=== PATIENT | male | born 1955 | race Caucasian/White ===

== ENCOUNTER 2018-02-13 07:00 | Day surgery (SDC) | payer OTHER ==
[2018-02-12 12:22] LABS: Absolute Lymphocytes (CBC) 1.6 K/uL (0.7-4.9); Absolute Monocytes 0.6 K/uL (0.1-1.3); Absolute Neutrophil 8.6 K/uL (1.8-8.0); Basophils % 1.5 % (0-1.3); Hematocrit 47.8 % (39.6-49.0); Lymphocytes % 14.1 % (15.3-44.8); MCH 31.3 pg (27.0-35.0); MPV 9.4 fL (7.6-11.3); Monocytes % 5.1 % (3.3-12.3); RBC Red Blood Cell Count 4.98 M/uL (4.33-5.43)
[2018-02-12 12:26] LABS: Protime INR 1.92
[2018-02-12 12:41] LABS: BUN Blood Urea Nitrogen 13 mg/dL (6-20); Bicarbonate 24 mEq/L (21-31); Glucose Level 144 mg/dL (65-120); Potassium 4.2 mEq/L (3.6-5.0); Sodium Level 136 mEq/L (135-145)
--- NOTE | 2018-02-12 13:04 | RAD REPORT ---
EXAM DESCRIPTION: RAD - Chest Single View - 02/12/2018 12:21 pm CLINICAL HISTORY: Preop chest, pending cardioversion COMPARISON: October 14, 2017 TECHNIQUE: AP portable chest image was obtained 1210 hours . FINDINGS: No failure, infiltrate or mass. Lung markings are similar to comparison imaging. Heart siz e is normal, decreased from prior imaging. No vascular engorgement. Trachea is midline. No measurable pleural effusion and no pneumothorax. No gross bony abnormality seen. No acute aortic findings suspe cted. IMPRESSION: No acute cardiopulmonary process. No suspicious change from comparison.
--- NOTE | 2018-02-12 15:00 | EKG ---
Test Date: 2018-02-12 Test Time: 12:27:03 Impress Associate: KIRIT MEASUREMENT RESULTS: Intervals: Rate: 57 [place]: QRSD: 98 QT: 396 QTc: 385 [place]: P: [place]: QRS: 24 T: 46 INTERPRETIVE STATEMENTS: Atrial fibrillation with slow ventricular response Low voltage QRS Abnormal ECG Compared to ECG 09/24/2017 09:02:51 Ventricular premature complex(es) no longer present T-wave abnormality no longer present Electronically Signed On 02-12-18 14:58:57 CDT by Rome Jean
[2018-02-13] MEDS ORDERED: NA CHLORIDE 0.9% 500 ML ONE (07:17)
[2018-02-13] MEDS ORDERED: FENTANYL CITR 100 MCG/2 ML ONE (07:43)
[2018-02-13] MEDS ORDERED: MIDAZOLAM HCL 5 MG/5 ML INJ ONE (07:43)
[2018-02-13 10:03] VITALS: BP 111/64; TEMP 97.2; O2SAT 97
--- NOTE | 2018-02-13 10:25 | EKG ---
Test Date: 2018-02-13 Test Time: 08:11:28 Civil Division Commander Deputy Sheriff: SHERIE MEASUREMENT RESULTS: Intervals: Rate: 71 [place]: 200 QRSD: 90 QT: 404 QTc: 439 [place]: P: 65 MN: 200 QRS: 16 T: 63 INTERPRETIVE STATEMENTS: Normal sinus rhythm Normal ECG Compared to ECG 02/12/2018 12:27:03 Atrial fibrillation no longer present Electronically Signed On 02-13-18 10:24:38 CDT by German Vazqeuz
--- NOTE | 2018-02-13 11:49 | OP ---
Surgeon: German Vazquez MD Identification: A 62-year-old man. Primary Care Physician: Dr. Sibley. Procedure: Direct current cardioversion. Indication: Atrial fibrillation. Procedure In Detail: The patient had improvement in his ejection fraction and stopped using alcohol, so we thought cardioversion would be a reasonable thing to attempt. He had been anticoagulated for close to a year for his AFib. He was brought to the [facility] in a fasting state. He had karen en his last Xarelto dose 12 hours before. He was fasting. He was sedated with 10 mg of Versed. It was titrated up to an adequate level of sedation. He was shocked with 1 shock 200 joules synchronize d to the QRS complex via anterior-posterior paddles. This resulted in sinus rhythm and successful ca rdioversion. There were no complications and he will be sent home today with no change in medicines. TALIB/LISA Voice ID: [id number] Report ID: [id number]
== END 2018-02-13 09:45 | disposition home health service (06) ==
LOC: CCL 07:00
PROVIDERS: ATTEND Internal Medicine
PROC: 5A2204Z Restoration of Cardiac Rhythm, Single (ICD-10-PCS; principal; 2018-02-13)
DX: I48.1 Persistent atrial fibrillation (principal); I42.6 Alcoholic cardiomyopathy; I11.0 Hypertensive heart disease with heart failure; I50.22 Chronic systolic (congestive) heart failure; Z79.01 Long term (current) use of anticoagulants
CPT/HCPCS: 36415; 71045; 80048; 85025; 85610; 85730; 92960; 93005; J2250; J3010

== ENCOUNTER 2024-07-03 12:15 | Emergency (ER) | payer OTHER ==
--- OUTSIDE RECORDS SUMMARY | 2024-07-03 12:18 | XMS REPORT | Clinical Summary ---
Author Name Unknown Organization [facility] Address [address] [place] [address] Care Team Providers Care Appeals Examiner Name Role Phone Jj Montero MD Primary Care Provider [phone] Dev Araiza MD Unavailable [phone] Rome Jean MD Unavailable [phone] Allergies No known active allergies Medications Medication Sig Dispensed Refills Start Date End Date Status metoprolol succinate (TOPROL XL) 50 mg 24 hr tablet TWICE DAILY 09/06/2017 Active sacubitriL-valsartan (Entresto) 24 mg-26 mg tab per tablet Take 1 tablet by mouth. 02/23/2021 Active tamsulosin (FLOMAX) 0.4 mg 24 hr capsule Take 1 capsule (0.4 mg) by mouth. 01/18/2022 Active multivit with minerals/lutein (MULTIVITAMIN 50 PLUS ORAL) Daily, 0 Refill(s) 09/26/2016 Active zinc gluconate 50 mg tablet Take 1 tablet (50 mg) by mouth daily. Active acetaminophen (TYLENOL) 500 mg tablet Take 1 tablet (500 mg) by mouth every 6 (six) hours as needed for mild pain. Active amoxicillin (AMOXIL) 500 mg capsule Take 1 capsule (500 mg) by mouth 3 (three) times a day. 05/01/2022 Active Xarelto 20 mg tablet Take 1 tablet (20 mg) by mouth daily. 04/10/2022 Active Active Problems Problem Noted Date Diagnosed Date [facility] current use of anticoagulant 2 Peripheral arterial occlusive disease 02/23/2022 History of alcohol abuse 02/23/2022 Malignant neoplasm of urinary bladder 02/22/2022 Cancer Staging:Clinical:Stage 0a(cTa, cN0, cM0) - Signed by Susanna Mohan PA on 08/04/2022 Overview: 01/18/22 Per [facility] Juliocesar Vieira is a 66 year old male who presents with 2 episodes or gross hematuria starting about 2 months ago lasting about 3 days each. Patient reports having irritative voiding symptoms including: frequency, dribbbling and hesitancy. He denies any flank, back or bone pain. Patient admits recent instrumentation and/or trauma including a rope being pulled between his legs while walking dog. He suffered brushing and abrasions to his buttock. Pt has personal history of bladder cancer diagnosed 40 years ago. Malignancy removed at [facility] in [place]. After malignancy removal he followed up for about 4 years with annual cystoscopies. Patient has been a smoker. Pt is an occasional drinker and has a hxt of alcoholism. 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 Denies previous treatments for enlarged prostate. Fatty liver 02/22/2022 Family history of prostate cancer 02/22/2022 Chronic atrial fibrillation 08/17/2017 Encounters Date Type Department Care Team Description 08/30/[address] [address] Reji Enciso RN 08/13/[address] [address] Reji Enciso RN 08/08/[address] [address] Reji Enciso RN 08/07/[address] [address] Roxana Machuca RN 08/06/[address] [address] Roxana Machuca, MICHAEL 07/11/2023 11:30 AM CDT Clinical Support MD Guido Yoder [address] [place] [address] Susanna Mohan PA Davis, Macaela T, RN Malignant tumor of urinary bladder (Primary Dx) 07/11/2023 Travel 07/10/2023 Telephone MD Guido Yoder [address] [place] [address] Roxana Machuca, RN after 07/04/2023 Surgical History Surgery Date Site/Laterality Comments CERVICAL FUSION 09/17/2016 - 09/16/2017 one in 2011 APPENDECTOMY 12 years old COLONOSCOPY 12/16/2021 - 01/14/2022 TRANSURETHRAL RESECTION OF BLADDER TUMOR 1999 ID CYSTOURETHROSCOPY W/DEST &/RMVL MED BLADDER MISSY 03/08/2022 N/A Procedure: CYSTOURETHROSCOPY WITH FULGURATION AND/OR TREATMENT OF MEDIUM LESION(S) (2.0 TO 5.0 CM; Surgeon: Jj Montero MD; Location: MAIN OR; Service: UROLOGY ID BLADDER INSTILLATION ANTICARCINOGENIC AGENT 03/08/2022 Genitalia/N/A Procedure: BLADDER INSTILLATION OF ANTICARCINOGENIC AGENT; Surgeon: Jj Montero MD; Location: MAIN OR; Service: UROLOGY Medical History Medical History Date Comments Paroxysmal atrial fibrillation 2018 Mass of urinary bladder 2021 HX in 20 00 - resected [facility] current use of anticoagulant 2 Peripheral arterial occlusive disease 02/23/2022 History of alcohol abuse Family History Medical History Relation Name Comments Prostate cancer Father Relation Name Status Comments Father Social History Tobacco Use Types Packs/Day Years Used Date Smoking Tobacco: Every Day Cigarettes 1 45 Smokeless Tobacco: Current Chew Comments:30+ years Alcohol Use Standard Drinks/Week Comments Not Currently 0 (1 standard drink = 0.6 oz pur e alcohol) Sex and Gender Information Value Date Recorded Sex Assigned at Not on file Gender Identity Not on file Sexual Orientation Not on file Job Start Date Occupation Industry Not on file Not on file Not on file Obstetrics History Last Filed Vital Signs Vital Sign Reading Time Taken Comments Blood Pressure 120/79 07/11/2023 11:16 AM CDT Pulse 95 07/11/2023 11:16 AM CDT Temperature 36.7 C (98.1 F) 07/11/2023 11:16 AM C DT Respiratory Rate 18 07/11/2023 11:16 AM CDT Oxygen Saturation 96% 07/11/2023 11:16 AM CDT Inhaled Oxygen Concentration - - Weight - - Height - - Body Mass Index - - Plan of Treatment Health Maintenance Due Date Last Done Comments COVID-19 Vaccine (#1) 1960 Pneumococcal Vaccine: 65+ Years (1 of 2 - PCV) 964 Influenza Vaccine (#1) 2024 Medical Devices Implanted Type Area Medical Director Occupational Health Device Identifier Shelf Expiration Date Model / Serial / Lot Screws Neck Care Teams Appeals Examiner Relationship Specialty Start Date End Date Jj Montero MD [address] [place] [id number] [email or web address] PCP - General Urology 02/14/22 Dev Araiza MD [address] [place] [phone] PCP - External Referring General Surgery 02/14/22 Rome Jean MD [address] [place] [phone] Cardiology 02/23/22
[2024-07-03 13:09] LABS: Absolute Basophils 0.1 K/uL (0-0.5); Absolute Lymphocytes (CBC) 0.4 K/uL (0.7-4.9); Absolute Monocytes 0.5 K/uL (0.1-1.3); Absolute Neutrophil 10.2 K/uL (1.8-8.0); Basophils % 0.8 % (0-1.3); Eosinophils % 0.2 % (0-4.4); Hematocrit 15.2 % (39.6-49.0); Lymphocytes % 3.6 % (15.3-44.8); MCH 32.5 pg (27.0-35.0); MCHC 31.1 g/dL (32.0-36.0); MCV 104.4 fL (80-100); MPV 8.2 fL (7.6-11.3); Monocytes % 4.2 % (3.3-12.3); Neutrophils % 91.2 % (41.7-73.7); Platelets 343 thou/uL (152-406); RBC Red Blood Cell Count 1.46 M/uL (4.33-5.43); Red Cell Distribution Width 18.2 % (12.1-15.2)
[2024-07-03 13:12] LABS: Hemoglobin 4.7 g/dL (13.6-17.9)
[2024-07-03] MEDS ORDERED: THIAMINE 200 MG/2 ML INJ ONE (13:16)
[2024-07-03 13:36] LABS: Blood Morphology Comment NOTED (NOT SEEN); Differential Total Cells Count 100; Eosinophils 1 % (0-3); Lymphocytes 5 % (15-42); Monocytes 3 % (0-10); Platelet Estimate ADEQ; Segmented Neutrophils 91 % (40-80)
--- NOTE | 2024-07-03 13:36 | RAD REPORT ---
EXAMINATION: ONE VIEW CHEST XR CLINICAL INDICATION: weakness TECHNIQUE: Frontal chest projection is submitted. Examination is limited by patient positioning and t echnique. COMPARISON: 04/17/2024 FINDINGS: The lungs are well inflated and clear. The heart is normal in size. No displaced fractures identified . IMPRESSION: No acute intrathoracic abnormalities.
[2024-07-03 13:37] LABS: Hypochromasia 2+; Macrocytosis 1+; Polychromasia 2+
[2024-07-03 13:39] LABS: Albumin 3.1 g/dL (3.4-5.0); Anion Gap 14.6 mEq/L (5.0-15.0); Bilirubin Direct 0.2 mg/dL (0-0.2); Bilirubin Indirect, Calculated 0.2 mg/dL (0.2-0.8); Bilirubin Total 0.4 mg/dL (0.2-1.0); Globulin 3.2 g/dL (2.3-3.5); Potassium 3.6 mEq/L (3.5-5.1); Protein, Total 6.3 g/dL (6.4-8.2)
--- NOTE | 2024-07-03 13:39 | RAD REPORT ---
EXAM: CT brain without contrast HISTORY: TRAUMA COMPARISON: None TECHNIQUE: Multiple contiguous axial images were obtained and a CT of the brain without contrast. Sag ittal and coronal reformats were performed. One or more of the following dose reduction techniques were used: Automated exposure control, adjust ment of the mA and/or kV according to patient size, and/or iterative reconstruction. FINDINGS: No evidence of hydrocephalus, intracranial hemorrhage, or extra-axial fluid collection. Mild brain atrophy noted. No evidence of midline shift or areas of brain edema. The calvarium is intact. The visualized paranasal sinuses and mastoid air cells are essentially clear . IMPRESSION: No evidence of acute intracranial abnormality. EXAM: CT of the cervical spine without contrast HISTORY: Neck pain, injury TRAUMA TECHNIQUE: Multiple contiguous axial images were obtained in a CT of the cervical spine without contr ast. Sagittal and coronal reformats were performed. FINDINGS: The vertebral bodies demonstrate normal height and alignment. No evidence of acute fracture or subluxation.. Hardware is in place at the C4-5 level with solid bony fusion spanning C4 C7. No prevertebral soft tissue swelling is seen. Bilateral carotid atherosclerosis. The posterior facets are well aligned. Normal alignment of the skull base with the cervical spine is seen. The lung apices are unremarkable. IMPRESSION: No evidence of acute osseous abnormality of the cervical spine.
--- NOTE | 2024-07-03 14:04 | ER ---
Nurse's Notes [facility] Name: Juliocesar Vieira Age: 68 yrs Sex: Male : 1955 Arrival Date: 07/03/2024 Time: 12:15 Bed 6 Private MD: Diagnosis: Upper GI bleed;Symptomatic anemia Presentation: 07/03 12:45 Chief complaint: Patient states: Sent from Dr Hensley's office, has had trouble walking ph that has been getting worse for 1 month, also has hx of alcohol use, states that he usually drinks approx 1 pint per day but has recently "cut down." Had the shakes when he woke up this morning, admits to having "3 shots" prior to coming to ED. Coronavirus screen: Vaccine status: Patient reports being unvaccinated. Ebola Screen: No symptoms or risks identified at this time. Initial Sepsis Screen: Does the patient meet any 2 criteria? No. Patient's initial sepsis screen is negative. Does the patient have a suspected source of infection? No. Patient's initial sepsis screen is negative. Risk Assessment: Do you want to hurt yourself or someone else? Patient reports no desire to harm self or others. Onset of symptoms was July 03, 2024. 12:45 Method Of Arrival: Wheelchair ph 12:45 Acuity: NAOMI 2 ph Historical: - Allergies: 12:30 Bees; mb9 - PMHx: 12:30 Atrial fibrillation; Hx of bladder cancer; Hypertension; mb9 - Immunization history:: Adult Immunizations up to date. - Infectious Disease History:: Denies. - Social history:: Smoking status: Patient denies any tobacco usage or history of. Screenin:[facility] ED Fall Risk Assessment (Adult) History of falling in the last 3 months, mb9 including since admission No falls in past 3 months (0 pts) Confusion or Disorientation No (0 pts) Intoxicated or Sedated No (0 pts) Impaired Gait No (0 pts) Mobility Assist Device Used No (0 pt) Altered Elimination No (0 pt) Score/Fall Risk Level 0 - 2 = Low Risk Oriented to surroundings, Maintained a safe environment, Educated pt \\T\\ family on fall prevention, incl call for assistance when getting out of bed. Abuse screen: Denies threats or abuse. Nutritional screening: No deficits noted. Tuberculosis screening: No symptoms or risk factors identified. Assessment: 13:25 General: Appears in no apparent distress. Behavior is calm, cooperative. Pain: Denies mb9 pain. Neuro: Smith Agitation-Sedation Scale (RASS): 0 - Alert and Calm Level of Consciousness is awake, alert, obeys commands, Oriented to person, place, time, situation, Appropriate for age Reports weakness. Cardiovascular: Heart tones S1 S2 present Patient's skin is warm and dry. Respiratory: Airway is patent Respiratory effort is even, unlabored, Respiratory pattern is regular, symmetrical, Breath sounds are clear bilaterally. GI: Abdomen is round non-distended. : No signs and/or symptoms were reported regarding the genitourinary system. EENT: No signs and/or symptoms were reported regarding the EENT system. Derm: Skin is pink, warm \\T\\ dry. Musculoskeletal: Range of motion: intact in all extremities. 14:25 Reassessment: No changes from previously documented assessment. Patient and/or family mb9 updated on plan of care and expected duration. Pain level reassessed. Patient is alert, oriented x 3, equal unlabored respirations, skin warm/dry/pink. 14:26 GI: Reports dark tarry stools for 3 weeks. mb9 14:44 General: Multiple attempts to obtain IV access unsuccessful. provider aware.. cm10 15:25 Reassessment: No changes from previously documented assessment. Patient and/or family mb9 updated on plan of care and expected duration. Pain level reassessed. Patient is alert, oriented x 3, equal unlabored respirations, skin warm/dry/pink. 16:25 Reassessment: No changes from previously documented assessment. Patient and/or family mb9 updated on plan of care and expected duration. Pain level reassessed. Patient is alert, oriented x 3, equal unlabored respirations, skin warm/dry/pink. 17:12 Reassessment: first unit of RBC started. See blood transfusion record sheet for further mb9 information. 17:15 Reassessment: No changes from previously documented assessment. Patient and/or family mb9 updated on plan of care and expected duration. Pain level reassessed. Patient is alert, oriented x 3, equal unlabored respirations, skin warm/dry/pink. 18:42 Reassessment: Patient appears in no apparent distress at this time. No changes from mb9 previously documented assessment. Patient and/or family updated on plan of care and expected duration. Pain level reassessed. Patient is alert, oriented x 3, equal unlabored respirations, skin warm/dry/pink. 18:50 Reassessment: 2nd RBC unit imitated. See blood transfusion record for further mb9 information. 19:08 Reassessment: Patient and/or family updated on plan of care and expected duration. Pain br2 level reassessed. Patient is alert, oriented x 3, equal unlabored respirations, skin warm/dry/pink. Patient states feeling better. Patient states symptoms have improved. General: Appears in no apparent distress. comfortable, Behavior is calm, cooperative. Vital Signs: 12:45 BP 109 / 52; Pulse 92; Resp 18; Temp 97.3; Pulse Ox 95% on R/A; Weight 73.48 kg; Height ph 5 ft. 9 in. ; 14:25 BP 114 / 60; Pulse 84; Resp 16; Pulse Ox 97% on R/A; mb9 15:00 BP 101 / 54; Pulse 89; Resp 15; Pulse Ox 100% on R/A; mb9 15:58 BP 99 / 46; Pulse 94; Resp 16; Pulse Ox 98% on R/A; mb9 17:12 BP 76 / 60; Pulse 88; Resp 16; Temp 97.2(TE); Pulse Ox 100% ; mb9 17:17 BP 99 / 58; Pulse 96; Resp 18; Temp 97.2(T); Pulse Ox 97% on R/A; mb9 17:22 BP 105 / 62; Pulse 89; Resp 18; Temp 97.2; Pulse Ox 97% on R/A; mb9 17:27 BP 107 / 60; Pulse 93; Resp 16; Temp 97.2; Pulse Ox 100% on R/A; mb9 18:06 BP 109 / 61; Pulse 83; Resp 18; Pulse Ox 100% on R/A; mb9 18:50 BP 106 / 64; Pulse 88; Resp 16; Temp 97.2(T); Pulse Ox 100% on R/A; mb9 18:55 BP 115 / 64; Pulse 89; Resp 16; Temp 97.2(T); Pulse Ox 97% on R/A; mb9 19:01 BP 114 / 62; Pulse 88; Resp 17; Temp 97.2; Pulse Ox 98% on R/A; mb9 19:05 BP 118 / 75; Pulse 92; Resp 16; Temp 97.2; Pulse Ox 97% on R/A; mb9 20:00 BP 115 / 61; Pulse 85; Resp 18; Pulse Ox 96% ; cp4 20:40 BP 125 / 67; Pulse 98; Resp 18; Pulse Ox 96% ; cp4 12:45 Body Mass Index 23.92 (73.48 kg, 175.26 cm) ph 17:12 baseline for 1st unit of RBCs mb9 18:50 Baseline for 2nd unit of RBC mb9 ED Course: 12:18 Patient arrived in ED. ra3 12:21 Kevin Umanzor MD is Attending Physician. rt 12:29 Florecita Kerr RN is Primary Nurse. mb9 12:30 Arm band placed on. mb9 12:50 Triage completed. ph 12:51 EKG done, by ED staff, reviewed by Kevin Umanzor MD. mb9 13:25 Placed in gown. Bed in low position. Call light in reach. Side rails up X 1. Provided mb9 Education on: press call light if needing anything. Client placed on continuous cardiac and pulse oximetry monitoring. NIBP monitoring applied. equipment monitor phototypesetting on. 13:25 Missed attempt(s): 20 gauge in left antecubital area. Bleeding controlled, band aid mb9 applied, catheter tip intact. 13:32 CT Head C Spine In Process Unspecified. EDMS 13:34 XRAY Chest (1 view) In Process Unspecified. EDMS 14:19 spoke with Winnie at [facility] for initiation. bc6 14:25 Consent for blood and/or blood product transfusion explained by staff, explained by mb9 physician, signed by patient. 14:25 Initial lab(s) drawn, by ED staff, sent to lab. Inserted saline lock: 22 gauge in right mb9 hand, using aseptic technique. Blood collected. Flushed with 10 mL NS. 14:45 Doc to Doc done. bc6 14:48 Door closed. Noise minimized. Warm blanket given. Pillow given. mb9 15:[address] Robles. bc6 15:52 Assisted provider with central line placement. Set up central line tray. Triple lumen mb9 line placed in right internal jugular. Line placed by Kevin Umanzor MD Placement verified by CXR, blood return, Dressed with 4X4s, Tegaderm, Blood was collected. Patient tolerated well. Before procedure, did Practitioner(s) obtain informed consent? Yes. Patient \\T\\ family education about procedure, CLABSI prevention and S/S of infection? Yes. Time-out/Briefing performed prior to start of procedure? Yes. Was handwashing/sanitizing done immediately prior to procedure? Yes. Was patient positioned to in a way to prevent air embolism? Yes. Was procedure site sterilized? Yes, with chlorhexidine. Was the site allowed to dry? Yes. During the procedure, did the Practitioner(s) maintain a sterile field? Yes. Were unused ports clamped during insertion? Yes. Was blood aspirated from each lumen? Yes. After the procedure, did the Practitioner(s) clean the site and apply a sterile dressing? Yes. 16:07 Chest Single View XRAY In Process Unspecified. EDMS 17:19 Patient transferred, IV remains in place. mb9 19:08 Report given to MICHAEL Schmidt. mb9 19:08 Report received from FLORECITA COLES. br2 Administered Medications: 14:00 Drug: Thiamine IV 100 mg IV at calculated rate once Route: IV; Rate: calculated rate; mb9 Site: right hand; 14:50 Follow up: Response: No adverse reaction; IV Status: Completed infusion mb9 14:20 Drug: Pantoprazole IVP 80 mg IVP once Route: IVP; Site: right hand; mb9 14:51 Follow up: Response: No adverse reaction mb9 14:25 Drug: Rocephin IV 2 grams IV at calculated rate once; Given slow IV push per pharmarcy mb9 instructions Route: IV; Rate: calculated rate; Site: right hand; 14:50 Follow up: Response: No adverse reaction; IV Status: Completed infusion mb9 14:25 Drug: Octreotide Sub-Q 50 mcg Sub-Q once Route: Sub-Q; Site: left lower abdomen; mb9 14:50 Follow up: Response: No adverse reaction mb9 14:50 Drug: Nicoderm CQ Transdermal Patch 21 mg/24 hr 1 patches Transdermal once Route: mb9 Transdermal; Site: affected area; 17:20 Follow up: Response: No adverse reaction mb9 Medication: 13:26 VIS not applicable for this client. mb9 Outcome: 14:03 ER care complete, transfer ordered by . rt 18:06 Transferred by ground EMS to [facility], Transfer form completed. fan9 X-rays sent w/ patient. Note: Report given to MICHAEL Domínguez 18:06 Condition: stable 18:06 Instructed on the need for transfer, 20:56 Patient left the ED. cp4 Signatures: Dispatcher [employer] EDGeneva Gibbs RN RN Cirilo, Florecita Eisenberg RN RN mb9 Kevin Umanzor MD MD rt Sameera Tipton 6 Radha Messer RN RN cm10 Roxana Prajapati cp4 Shantell Caballero ra3 Janeen Archuleta RN RN br2
--- NOTE | 2024-07-03 14:04 | EDPHYS ---
Physician Documentation [facility] Name: Juliocesar Vieira Age: 68 yrs Sex: Male : 1955 Arrival Date: 07/03/2024 Time: 12:15 Bed 6 Private MD: ED Physician Kevin Umanzor HPI: 07/03 12:49 This 68 yrs old Male presents to ER via Unassigned with complaints of sent by Dr rt Hensley:weakness trouble walking. 12:52 Patient presents to the ED from Dr. Sorenson's office for difficulty walking, unsteadiness rt on the feet for about 1 month, has been worsening. Patient states that he has been cutting back on his drinking but did have some alcohol today because of his shakes. Dr. Hensley stated that the patient had A-fib with rapid ventricular rate as well as hypotension to 70 systolic. Denies other acute complaints at this time, symptoms are moderate in severity, no other aggravating alleviating factors.. Historical: - Allergies: 12:30 Bees; mb9 - PMHx: 12:30 Atrial fibrillation; Hx of bladder cancer; Hypertension; mb9 - Immunization history:: Adult Immunizations up to date. - Infectious Disease History:: Denies. - Social history:: Smoking status: Patient denies any tobacco usage or history of. ROS: 12:52 Constitutional: Negative for fever, chills, and weight loss, Cardiovascular: Negative rt for chest pain, palpitations, and edema, Respiratory: Negative for shortness of breath, cough, wheezing, and pleuritic chest pain, Abdomen/GI: Negative for abdominal pain, nausea, vomiting, diarrhea, and constipation, MS/Extremity: Negative for injury and deformity, Skin: Negative for injury, rash, and discoloration, 12:52 Neuro: Positive for dizziness, gait disturbance, Exam: 12:52 Constitutional: This is a well developed, well nourished patient who is awake, alert, rt and in no acute distress. Head/Face: Normocephalic, atraumatic. Chest/axilla: Normal chest wall appearance and motion. Nontender with no deformity. No lesions are appreciated. Cardiovascular: Regular rate and rhythm with a normal S1 and S2. No gallops, murmurs, or rubs. Normal PMI, no JVD. No pulse deficits. Respiratory: Lungs have equal breath sounds bilaterally, clear to auscultation and percussion. No rales, rhonchi or wheezes noted. No increased work of breathing, no retractions or nasal flaring. Abdomen/GI: Soft, non-tender, with normal bowel sounds. No distension or tympany. No guarding or rebound. No evidence of tenderness throughout. Skin: Warm, dry with normal turgor. Normal color with no rashes, no lesions, and no evidence of cellulitis. MS/ Extremity: Pulses equal, no cyanosis. Neurovascular intact. Full, normal range of motion. Neuro: Awake and alert, GCS 15, oriented to person, place, time, and situation. Cranial nerves II-XII grossly intact. Motor strength 5/5 in all extremities. Sensory grossly intact. Cerebellar exam normal. Normal gait. 12:52 ECG was reviewed by the Attending Physician. Vital Signs: 12:45 BP 109 / 52; Pulse 92; Resp 18; Temp 97.3; Pulse Ox 95% on R/A; Weight 73.48 kg; Height ph 5 ft. 9 in. ; 14:25 BP 114 / 60; Pulse 84; Resp 16; Pulse Ox 97% on R/A; mb9 15:00 BP 101 / 54; Pulse 89; Resp 15; Pulse Ox 100% on R/A; mb9 15:58 BP 99 / 46; Pulse 94; Resp 16; Pulse Ox 98% on R/A; mb9 17:12 BP 76 / 60; Pulse 88; Resp 16; Temp 97.2(TE); Pulse Ox 100% ; mb9 17:17 BP 99 / 58; Pulse 96; Resp 18; Temp 97.2(T); Pulse Ox 97% on R/A; mb9 17:22 BP 105 / 62; Pulse 89; Resp 18; Temp 97.2; Pulse Ox 97% on R/A; mb9 17:27 BP 107 / 60; Pulse 93; Resp 16; Temp 97.2; Pulse Ox 100% on R/A; mb9 18:06 BP 109 / 61; Pulse 83; Resp 18; Pulse Ox 100% on R/A; mb9 18:50 BP 106 / 64; Pulse 88; Resp 16; Temp 97.2(T); Pulse Ox 100% on R/A; mb9 18:55 BP 115 / 64; Pulse 89; Resp 16; Temp 97.2(T); Pulse Ox 97% on R/A; mb9 19:01 BP 114 / 62; Pulse 88; Resp 17; Temp 97.2; Pulse Ox 98% on R/A; mb9 19:05 BP 118 / 75; Pulse 92; Resp 16; Temp 97.2; Pulse Ox 97% on R/A; mb9 20:00 BP 115 / 61; Pulse 85; Resp 18; Pulse Ox 96% ; cp4 20:40 BP 125 / 67; Pulse 98; Resp 18; Pulse Ox 96% ; cp4 12:45 Body Mass Index 23.92 (73.48 kg, 175.26 cm) ph 17:12 baseline for 1st unit of RBCs mb9 18:50 Baseline for 2nd unit of RBC mb9 Procedures: 16:05 Central Line: the site was prepped with Chlorhexidine, a triple lumen catheter was rt inserted, in the right internal jugular vein, in 2 attempts. placement was verified, by CXR, the site was dressed with Chlorhexidine impregnated Tegaderm, the patient tolerated the procedure, well, Initially attempted at left internal jugular, was able to thread the wire into the vein without difficulty, however, could not pass the wire past midline, determined at that site, reprepped and then was able to place the central line into the right internal jugular without difficulty. MDM: 12:29 Medical Screening Exam initiated rt 16:05 Differential Diagnosis GI bleed, dysrhythmia, alcohol withdrawal, Warnicke Korsakoff rt syndrome. Data reviewed: vital signs, nurses notes, lab test result(s), EKG, radiologic studies. Consideration of Admission/Observation Escalation of care including admission/observation considered. Patient with GI bleed, will transfer for gastroenterology coverage. Management of patient was discussed with the following: Ebd Teacher: Discussed with accepting shipping lead, snow technician at [facility]. I considered the following discharge prescriptions or medication management in the emergency department Medications were administered in the Emergency Department. See MAR. Independent interpretation of the following test(s) in the Emergency Department X-Ray: My interpretation is No pneumothorax seen on interpretation of x-ray images. Care significantly affected by the following chronic conditions: Atrial fibrillation. Counseling: I had a detailed discussion with the patient and/or guardian regarding the historical points, exam findings, and any diagnostic results supporting the discharge/admit diagnosis, lab results, radiology results, the need to transfer to another facility. Response to treatment: the patient's symptoms have mildly improved after treatment. 16:05 Care significantly affected by the following Social Determinants of Health: Misuse of rt alcohol and/or drugs. 07/03 13:36 Order name: Type And Screen rt 07/03 12:37 Order name: Basic Metabolic Panel; Complete Time: 13:54 rt 07/03 12:37 Order name: CBC with Diff; Complete Time: 13:43 rt 07/03 12:37 Order name: LFT's; Complete Time: 13:54 rt 07/03 12:37 Order name: NT PRO-BNP; Complete Time: 13:54 rt 07/03 12:37 Order name: Troponin HS; Complete Time: 13:54 rt 07/03 12:37 Order name: CPK; Complete Time: 13:54 rt 07/03 12:37 Order name: ETOH Level; Complete Time: 13:35 rt 07/03 13:37 Order name: Manual Differential; Complete Time: 13:43 EDMS 07/03 16:29 Order name: Packed RBCs (Additional Unit) EDMS 07/03 16:47 Order name: ABO/RH no charge EDMS 07/03 12:37 Order name: XRAY Chest (1 view); Complete Time: 13:43 rt 07/03 12:37 Order name: CT Head C Spine; Complete Time: 13:43 rt 07/03 15:41 Order name: Chest Single View XRAY; Complete Time: 16:12 mb9 07/03 12:37 Order name: Cardiac monitoring; Complete Time: 12:51 rt 07/03 12:37 Order name: EKG - Nurse/Tech; Complete Time: 12:51 rt 07/03 12:37 Order name: IV Saline Lock; Complete Time: 12:51 rt 07/03 12:37 Order name: Labs collected and sent; Complete Time: 12:51 rt 07/03 12:37 Order name: O2 Per Protocol; Complete Time: 12:51 rt 07/03 12:37 Order name: O2 Sat Monitoring; Complete Time: 12:51 rt 07/03 14:42 Order name: Labs - recollect needed: TS. ; Complete Time: 15:04 bc6 07/03 15:20 Order name: Labs - recollect needed: short purple; Complete Time: 16:02 bc6 EC:52 Rate is 83 beats/min. Rhythm is regular, Normal Sinus Rhythm with No ectopy. QRS [place] rt is Normal. NM interval is normal. QRS interval is normal. QT interval is normal. No Q waves. T waves are Normal. No ST changes noted. Interpreted by me. Administered Medications: 14:00 Drug: Thiamine IV 100 mg IV at calculated rate once Route: IV; Rate: calculated rate; mb9 Site: right hand; 14:50 Follow up: Response: No adverse reaction; IV Status: Completed infusion mb9 14:20 Drug: Pantoprazole IVP 80 mg IVP once Route: IVP; Site: right hand; mb9 14:51 Follow up: Response: No adverse reaction mb9 14:25 Drug: Rocephin IV 2 grams IV at calculated rate once; Given slow IV push per pharmarcy mb9 instructions Route: IV; Rate: calculated rate; Site: right hand; 14:50 Follow up: Response: No adverse reaction; IV Status: Completed infusion mb9 14:25 Drug: Octreotide Sub-Q 50 mcg Sub-Q once Route: Sub-Q; Site: left lower abdomen; mb9 14:50 Follow up: Response: No adverse reaction mb9 14:50 Drug: Nicoderm CQ Transdermal Patch 21 mg/24 hr 1 patches Transdermal once Route: mb9 Transdermal; Site: affected area; 17:20 Follow up: Response: No adverse reaction mb9 Disposition Summary: 07/03/24 14:03 Transfer Ordered Notes: Transfer Location: [facility] rt Reason: Higher level of care rt Condition: Stable rt Problem: new rt Symptoms: are unchanged rt Accepting Physician: (07/03/24 20:56) cp4 Diagnosis - Upper GI bleed rt - Symptomatic anemia rt Forms: - Medication Reconciliation Form rt - SBAR form rt Critical care time excluding procedures: 16:09 Critical care time: Bedside Care: 35 minutes, Consultation: 10 minutes. Total time: 45 rt minutes Signatures: Dispatcher [employer] Clary Champion RN RN Anaya Corea RN RN mb9 Kevin Umanzor MD MD rt Sameera Tipton bcRoxana Cruz cp4 Corrections: (The following items were deleted from the chart) 12:37 12:37 BASIC METABOLIC PANEL+C.LAB.BRZ ordered. EDMS EDMS 12:37 12:37 CBC+H.LAB.BRZ ordered. EDMS EDMS 12:37 12:37 HEPATIC FUNCTION+C.LAB.BRZ ordered. EDMS EDMS 12:37 12:37 PROBNP+C.LAB.BRZ ordered. EDMS EDMS 12:37 12:37 Troponin High Sensitivity+C.LAB.BRZ ordered. EDMS EDMS 12:37 12:37 CREATINE PHOSPHOKINASE+C.LAB.BRZ ordered. EDMS EDMS 12:37 12:37 ETHANOL+C.LAB.BRZ ordered. EDMS EDMS 12:37 12:37 Chest Single View+RAD.RAD.BRZ ordered. EDMS EDMS 12:37 12:37 Head C Spine MPR Wo Con+CT.RAD.BRZ ordered. EDMS EDMS 20:56 14:03 rt cp4
[2024-07-03] MEDS ORDERED: PANTOPRAZOLE 40 MG INJ ONE (14:08)
[2024-07-03] MEDS ORDERED: CEFTRIAXONE 2000 MG/VIAL ONE (14:08)
[2024-07-03] MEDS ORDERED: OCTREOTIDE ACETATE 100 MCG/ML ONE (14:08)
[2024-07-03] MEDS ORDERED: NA CHLORIDE 0.9% 50 ML ONE (14:09)
[2024-07-03] MEDS ORDERED: NA CHLORIDE 0.9% 250 ML ONE (14:09)
[2024-07-03] MEDS ORDERED: NICOTINE 21 MG/PAT TD ONE (14:15)
--- NOTE | 2024-07-03 16:10 | RAD REPORT ---
EXAMINATION: ONE VIEW CHEST XR CLINICAL INDICATION: Confirm placement of central line TECHNIQUE: Frontal chest projection is submitted. Examination is limited by patient positioning and t echnique. COMPARISON: 07/03/2024 FINDINGS: The lungs are well inflated and clear. The heart is normal in size. Right-sided venous catheter lies with the tip in SVC. No postprocedural pneumothorax. IMPRESSION: No postprocedure pneumothorax.
[2024-07-03 21:54] VITALS: TEMP 97.2
[2024-07-03 22:05] VITALS: O2SAT 96
[2024-07-03 22:06] VITALS: BP 125/67
== END 2024-07-03 20:56 | disposition short-term general hospital (02) ==
LOC: ER 12:15
PROC: 30233N1 Transfusion of Nonautologous Red Blood Cells into Peripheral Vein, Percutaneous Approach (ICD-10-PCS; principal; 2024-07-03)
DX: D64.9 Anemia, unspecified (principal); R53.1 Weakness; R42 Dizziness and giddiness; I10 Essential (primary) hypertension; I48.91 Unspecified atrial fibrillation
CPT/HCPCS: 96365; 93005; 85025; 80048; 36415; 86900; 86850; 82550; 86901; 80076; 86920 ×2; 84484; 83880; 70450; 72125; 71045 ×2; 96375; 96372; 99285; 36556; 82077; 36430; J3411; J2354; J2470; J0696; P9016 ×2; J7050